=== PATIENT | female | born 1990 | race Caucasian/White ===

== ENCOUNTER 2020-08-31 08:08 | Emergency (ER) | payer MEDICAID ==
[~2020-08-31] VITALS: Ht 175.3 cm; Wt 59.5 kg
[~2020-08-31 08:08] MED LIST: DIPH-423 PO
[2020-08-31] MEDS ORDERED: ondansetron/PF 4mg/2ml inj IV ONE (08:35)
[2020-08-31] MEDS ORDERED: normal saline 1000ML IV soln IVB ONE (08:35)
[2020-08-31] MEDS ORDERED: morphine 4 MG/ML inj SYRINge IV PRN (08:35)
[2020-08-31 09:02] LABS: BASOPHILS % (AUTO) 0.5 % (0-1); EOSINOPHILS # (AUTO) 0.3 X10'3 (0-0.9); EOSINOPHILS % (AUTO) 4.6 % (0-6); HEMATOCRIT 43.3 % (35.0-45.0); HEMOGLOBIN 14.5 g/dl (12.0-16.0); LYMPHOCYTES # (AUTO) 2.3 X10'3 (1.1-4.8); LYMPHOCYTES % (AUTO) 31.7 % (21-51); MEAN CORPUSCULAR HGB CONC 33.5 g/dL (33.0-36.5); MEAN CORPUSCULAR VOLUME 89.6 FL (78-98); MEAN PLATELET VOLUME 8.2 FL (7.4-10.4); MONOCYTES # (AUTO) 0.4 X10'3 (0-0.9); MONOCYTES % (AUTO) 5.7 % (2-12); NEUTROPHILS # (AUTO) 4.1 X10'3 (1.8-7.7); NEUTROPHILS % (AUTO) 57.5 % (42-75); PLATELET COUNT 298 X10'3 (140-440); RED BLOOD COUNT 4.83 X10'6 (4.20-5.60); RED CELL DISTRIBUTION WIDTH 13.1 % (11.5-14.5); WHITE BLOOD COUNT 7.2 X10'3 (4.5-11.0)
[2020-08-31 09:13] LABS: ALANINE AMINOTRANSFERASE 27 U/L (12-78); ALBUMIN 4.2 G/DL (3.4-5.0); ALBUMIN/GLOBULIN RATIO 1.2 (1.1-1.5); ALKALINE PHOSPHATASE 69 IU/L (46-116); ANION GAP 11 (8-16); ASPARTATE AMINO TRANSFERASE 12 U/L (10-37); BILIRUBIN,TOTAL 0.4 MG/DL (0.1-1.0); BLOOD UREA NITROGEN 9 MG/DL (7-18); BUN/CREATININE RATIO 13.8 (6.6-38.0); CHLORIDE 106 MMOL/L (99-107); CREATININE 0.65 MG/DL (0.40-0.90); GLUCOSE 99 MG/DL (70-104); LIPASE 114 U/L (73-393); POTASSIUM 3.7 MMOL/L (3.5-5.1); SODIUM 142 MMOL/L (135-145); TOTAL CARBON DIOXIDE 25.5 MMOL/L (24-32); TOTAL PROTEIN 7.6 G/DL (6.4-8.2); eGFR > 90 ML/MIN
[2020-08-31 09:33] LABS: HCG SERUM QL NEGATIVE
[2020-08-31 10:33] VITALS: BP 91/55
[2020-08-31 11:03] LABS: CLARITY,URINE SLIGHTLY CLOUDY (Clear); COLOR,URINE STRAW (Yellow); GLUCOSE, URINE NEGATIVE (Neg); KETONES,URINE NEGATIVE (Neg); LEUKOCYTE ESTERASE ,URINE NEGATIVE (Neg); NITRITES, URINE NEGATIVE (Neg); OCCULT BLOOD,URINE TRACE-INTACT (Neg); PROTEIN,URINE NEGATIVE (Neg); UROBILINOGEN,URINE 0.2 E.U/dL (0.2-1.0)
[2020-08-31 11:09] LABS: UA COLLECTION TYPE CLN CATCH MIDSTREAM
[2020-08-31 11:12] LABS: SQUAMOUS EPITHELIAL CELL,UR MANY /LPF (FEW)
[2020-08-31 11:15] LABS: BACTERIA,URINE 1+ /HPF (Neg); RBC,URINE 0-2 /HPF (0-2); WBC,URINE 0-4 /HPF (0-4)
== END 2020-08-31 10:35 | disposition home or self-care (01) ==
LOC: ER 08:08
DX: K42.9 Umbilical hernia without obstruction or gangrene (principal); F17.200 Nicotine dependence, unspecified, uncomplicated; F12.10 Cannabis abuse, uncomplicated; Z79.899 Other long term (current) drug therapy
CPT/HCPCS: 36415; 80053; 81001; 83690; 84703; 85025; 96361; 96374; 96375; 99284; J2270; J2405; J7030

== ENCOUNTER 2020-10-09 11:03 | Emergency (ER) | payer MEDICAID ==
[~2020-10-09] VITALS: Ht 177.8 cm; Wt 62.1 kg
[2020-10-09 11:06] VITALS: BP 109/76
[2020-10-09] MEDS ORDERED: normal saline 1000ML IV soln IVB ONE ×2 (11:30→12:20)
[2020-10-09] MEDS ORDERED: proCHLORperazine 10 MG/2 ml inj IV ONE (11:50)
[2020-10-09] MEDS ORDERED: ketorolac tromethamine 15mg/ml inj. IV ONE (11:50)
[2020-10-09] MEDS ORDERED: SUMAtriptan succ. 6 MG/0.5ml vial SQ ONE (12:20)
[2020-10-09] MEDS ORDERED: PROC-8 PO (12:39)
== END 2020-10-09 13:05 | disposition home or self-care (01) ==
LOC: ER 11:04
DX: G43.909 Migraine, unspecified, not intractable, without status migrainosus (principal); E86.0 Dehydration; F17.210 Nicotine dependence, cigarettes, uncomplicated; F12.90 Cannabis use, unspecified, uncomplicated; Z90.49 Acquired absence of other specified parts of digestive tract; Z79.899 Other long term (current) drug therapy
CPT/HCPCS: 71045; 96374; 96375; 99284; J0780; J1885; J7030

== ENCOUNTER 2021-02-13 19:13 | Emergency (ER) | payer MEDICAID ==
[~2021-02-13] VITALS: Ht 177.8 cm; Wt 58.0 kg
[~2021-02-13 19:13] MED LIST changes: +PROC-8 PO
[2021-02-13 19:18] VITALS: BP 133/79
[2021-02-13] MEDS ORDERED: normal saline 1000ML IV soln IVB ONE ×2 (19:25→19:35)
[2021-02-13] MEDS ORDERED: HYDROmorphone inj. 0.5 MG/0.5 ML DISP.SYRIN IV PRN (19:35)
[2021-02-13] MEDS ORDERED: ondansetron/PF 4mg/2ml inj IV ONE (19:35)
--- NOTE | 2021-02-13 19:39 | NUR ---
LONNY PULLED FROM [employer] AND HANDED OFF TO PRIMARY RN
[2021-02-13 19:45] LABS: BASOPHILS % (AUTO) 0.6 % (0-1); EOSINOPHILS # (AUTO) 0.2 X10'3 (0-0.9); EOSINOPHILS % (AUTO) 2.6 % (0-6); HEMOGLOBIN 13.2 g/dl (12.0-16.0); LYMPHOCYTES # (AUTO) 3.1 X10'3 (1.1-4.8); LYMPHOCYTES % (AUTO) 40.1 % (21-51); MEAN CORPUSCULAR HGB CONC 33.1 g/dL (33.0-36.5); MEAN CORPUSCULAR VOLUME 90.6 FL (78-98); MEAN PLATELET VOLUME 7.9 FL (7.4-10.4); MONOCYTES # (AUTO) 0.5 X10'3 (0-0.9); MONOCYTES % (AUTO) 7.1 % (2-12); NEUTROPHILS # (AUTO) 3.8 X10'3 (1.8-7.7); NEUTROPHILS % (AUTO) 49.6 % (42-75); PLATELET COUNT 267 X10'3 (140-440); RED BLOOD COUNT 4.41 X10'6 (4.20-5.60); WHITE BLOOD COUNT 7.7 X10'3 (4.5-11.0)
[2021-02-13] MEDS ORDERED: HYDROmorphone 1 mg/ml syringe IV PRN (19:47)
[2021-02-13 19:56] LABS: HCG SERUM QL NEGATIVE
[2021-02-13 20:01] LABS: ALANINE AMINOTRANSFERASE 26 U/L (12-78); ALBUMIN 4.3 G/DL (3.4-5.0); ALBUMIN/GLOBULIN RATIO 1.3 (1.1-1.5); ALKALINE PHOSPHATASE 67 IU/L (46-116); ANION GAP 10 (8-16); ASPARTATE AMINO TRANSFERASE 14 U/L (10-37); BILIRUBIN,TOTAL 0.4 MG/DL (0.1-1.0); BLOOD UREA NITROGEN 11 MG/DL (7-18); CALCIUM 8.8 MG/DL (8.5-10.1); CHLORIDE 104 MMOL/L (99-107); CREATININE 0.61 MG/DL (0.40-0.90); GLUCOSE 100 MG/DL (70-104); LIPASE 112 U/L (73-393); POTASSIUM 3.5 MMOL/L (3.5-5.1); SODIUM 142 MMOL/L (135-145); TOTAL CARBON DIOXIDE 27.8 MMOL/L (24-32); TOTAL PROTEIN 7.7 G/DL (6.4-8.2); eGFR > 90 ML/MIN
[2021-02-13] MEDS ORDERED: fentaNYL/PF 50MCG/1 ML 2ML syringe IV ONE (20:05)
[2021-02-13] MEDS ORDERED: ketorolac tromethamine 15mg/ml inj. IV ONE (20:05)
[2021-02-13 20:36] LABS: CLARITY,URINE TURBID (Clear); COLOR,URINE BROWN (Yellow); GLUCOSE, URINE NEGATIVE (Neg); KETONES,URINE TRACE mg/dl (Neg); LEUKOCYTE ESTERASE ,URINE NEGATIVE (Neg); OCCULT BLOOD,URINE LARGE (Neg); PH,URINE 6.5 (4.8-8.0); PROTEIN,URINE 100 mg/dl (Neg)
[2021-02-13 20:54] LABS: UA COLLECTION TYPE CLN CATCH MIDSTREAM
[2021-02-13 20:57] LABS: NITRITES, URINE NEGATIVE (Neg)
[2021-02-13 20:59] LABS: RBC,URINE TNTC /HPF (0-2); WBC,URINE 0-4 /HPF (0-4)
[2021-02-13 21:00] LABS: BACTERIA,URINE 1+ /HPF (Neg); CAL OXALATE CRYSTALS FEW /HPF (NEGATIVE); MUCUS STRANDS MANY /LPF (Neg); SQUAMOUS EPITHELIAL CELL,UR MANY /LPF (FEW)
--- NOTE | 2021-02-13 21:01 | NUR ---
URINE WAS REJECTED FOR CULTURE
[2021-02-13] MEDS ORDERED: KETO10TA2 PO (21:15)
[2021-02-13] MEDS ORDERED: OXYB5TAB16 PO (21:15)
[2021-02-13] MEDS ORDERED: PHEN-824 PO (21:15)
[2021-02-13] MEDS ORDERED: FLO0.4C PO (21:15)
[2021-02-13] MEDS ORDERED: HYDR-3965 PO (21:16)
[2021-02-13] MEDS ORDERED: ONDA4TAB6 PO (21:16)
== END 2021-02-13 21:51 | disposition home or self-care (01) ==
LOC: ER 19:13
DX: Q61.5 Medullary cystic kidney (principal); N13.30 Unspecified hydronephrosis; R10.84 Generalized abdominal pain; F12.90 Cannabis use, unspecified, uncomplicated; Z90.49 Acquired absence of other specified parts of digestive tract; Z79.899 Other long term (current) drug therapy
CPT/HCPCS: 36415; 74176; 80053; 81001; 83690; 84703; 85025; 96361; 96374; 96375; 99284; J1170; J1885; J2405; J7030

== ENCOUNTER 2022-02-22 13:28 | Emergency (ER) | payer MEDICAID ==
[~2022-02-22] VITALS: Ht 175.3 cm; Wt 79.1 kg
[~2022-02-22 13:28] MED LIST changes: +KETO10TA2 PO; +ONDA4TAB6 PO; +OXYB5TAB16 PO; +PHEN-824 PO
[2022-02-22 13:58] VITALS: BP 105/70
== END 2022-02-22 14:50 | disposition left against medical advice (07) ==
LOC: ER 13:29
DX: K92.1 Melena (principal); Z53.21 Procedure and treatment not carried out due to patient leaving prior to being seen by health care provider

== ENCOUNTER 2022-07-16 17:09 | Emergency (ER) | payer MEDICAID ==
[~2022-07-16] VITALS: Ht 175.3 cm; Wt 68.2 kg
[2022-07-16 18:29] LABS: BASOPHILS # (AUTO) 0.1 X10'3 (0-0.2); BASOPHILS % (AUTO) 0.6 % (0-1); EOSINOPHILS # (AUTO) 0.5 X10'3 (0-0.9); EOSINOPHILS % (AUTO) 5.1 % (0-6); HEMATOCRIT 43.2 % (35.0-45.0); HEMOGLOBIN 14.6 g/dl (12.0-16.0); LYMPHOCYTES # (AUTO) 3.2 X10'3 (1.1-4.8); LYMPHOCYTES % (AUTO) 32.2 % (21-51); MEAN CORPUSCULAR HEMOGLOBIN 28.9 PG (27.0-31.0); MEAN CORPUSCULAR HGB CONC 33.9 g/dL (33.0-36.5); MEAN CORPUSCULAR VOLUME 85.4 FL (78-98); MEAN PLATELET VOLUME 7.8 FL (7.4-10.4); MONOCYTES # (AUTO) 0.7 X10'3 (0-0.9); MONOCYTES % (AUTO) 6.8 % (2-12); NEUTROPHILS # (AUTO) 5.4 X10'3 (1.8-7.7); NEUTROPHILS % (AUTO) 55.3 % (42-75); PLATELET COUNT 304 X10'3 (140-440); RED BLOOD COUNT 5.06 X10'6 (4.20-5.60); RED CELL DISTRIBUTION WIDTH 14.6 % (11.5-14.5); WHITE BLOOD COUNT 9.8 X10'3 (4.5-11.0)
[2022-07-16 18:52] LABS: ALANINE AMINOTRANSFERASE 29 U/L (12-78); ALBUMIN/GLOBULIN RATIO 1.1 (1.1-1.5); ALKALINE PHOSPHATASE 107 IU/L (46-116); ANION GAP 6 (8-16); ASPARTATE AMINO TRANSFERASE 13 U/L (10-37); BILIRUBIN,TOTAL 0.2 MG/DL (0.1-1.0); BLOOD UREA NITROGEN 7 MG/DL (7-18); BUN/CREATININE RATIO 11.5 (6.6-38.0); CALCIUM 8.9 MG/DL (8.5-10.1); CHLORIDE 101 MMOL/L (99-107); CREATININE 0.61 MG/DL (0.40-0.90); GLUCOSE 95 MG/DL (70-104); LIPASE 114 U/L (73-393); POTASSIUM 3.8 MMOL/L (3.5-5.1); SODIUM 136 MMOL/L (135-145); TOTAL PROTEIN 7.6 G/DL (6.4-8.2); eGFR > 90 ML/MIN
[2022-07-16] MEDS ORDERED: morphine 4 MG/ML inj SYRINge IV ONE ×3 (20:40→22:50)
[2022-07-16] MEDS ORDERED: ondansetron/PF 4mg/2ml inj IV ONE (20:40)
[2022-07-16 21:18] LABS: HCG SERUM QL NEGATIVE
[2022-07-16] MEDS ORDERED: iohexol 300mg/ml 100ml inj. ONE (21:18)
[2022-07-16 21:31] LABS: CLARITY,URINE SLIGHTLY CLOUDY (Clear); COLOR,URINE YELLOW (Yellow); GLUCOSE, URINE NEGATIVE (Neg); KETONES,URINE NEGATIVE (Neg); LEUKOCYTE ESTERASE ,URINE NEGATIVE (Neg); NITRITES, URINE NEGATIVE (Neg); OCCULT BLOOD,URINE NEGATIVE (Neg); PROTEIN,URINE NEGATIVE (Neg); UROBILINOGEN,URINE 0.2 E.U/dL (0.2-1.0)
[2022-07-16 21:32] LABS: URINE HCG NEGATIVE (NEG)
[2022-07-16 21:33] LABS: UA COLLECTION TYPE NON-SPECIFIED
[2022-07-16 21:46] LABS: BACTERIA,URINE 1+ /HPF (Neg); MUCUS STRANDS FEW /LPF (Neg); SQUAMOUS EPITHELIAL CELL,UR MANY /LPF (FEW)
[2022-07-16] MEDS ORDERED: famotidine/PF 10 mg/ml inj IV ONE (22:50)
[2022-07-16] MEDS ORDERED: mag hydrox/Alum hydrox/simeth 30ml oral suspension PO ONE (22:50)
[2022-07-16] MEDS ORDERED: ketorolac trometh. 30mg/ml inj. IV ONE (23:20)
[2022-07-16] MEDS ORDERED: sucralfate 1 gm tablet PO ONE (23:20)
[2022-07-17 00:56] VITALS: BP 102/68
== END 2022-07-17 01:14 | disposition home or self-care (01) ==
LOC: ER 17:09
DX: K42.9 Umbilical hernia without obstruction or gangrene (principal); R10.84 Generalized abdominal pain; F17.200 Nicotine dependence, unspecified, uncomplicated; F12.90 Cannabis use, unspecified, uncomplicated; Z90.49 Acquired absence of other specified parts of digestive tract; Z56.0 Unemployment, unspecified; Z79.899 Other long term (current) drug therapy
CPT/HCPCS: 36415; 74177; 80053; 81001; 81025; 83605; 83690; 84703; 85025; 96374; 96375; 96376; 99285; J2270; J2405; J3490; Q9967

== ENCOUNTER 2022-08-26 10:58 | Emergency (ER) | payer MEDICAID ==
[~2022-08-26] VITALS: Ht 175.3 cm; Wt 68.5 kg
[2022-08-26 11:10] VITALS: BP 120/82
--- NOTE | 2022-08-26 11:30 | NUR ---
Patient refusing labs till being seen by
--- NOTE | 2022-08-26 14:00 | NUR ---
Phlebotomy states that patient refusing to have labs draw until after she is seen by a physician.
== END 2022-08-26 20:22 | disposition left against medical advice (07) ==
LOC: ER 10:58
DX: K62.5 Hemorrhage of anus and rectum (principal); Z53.21 Procedure and treatment not carried out due to patient leaving prior to being seen by health care provider

== ENCOUNTER 2022-12-17 15:37 | Emergency (ER) | payer MEDICAID ==
[~2022-12-17] VITALS: Ht 175.3 cm; Wt 68.6 kg
[2022-12-17 15:48] VITALS: BP 117/78
[2022-12-17 16:17] LABS: CLARITY,URINE CLOUDY (Clear); COLOR,URINE YELLOW (Yellow); GLUCOSE, URINE NEGATIVE (Neg); KETONES,URINE TRACE mg/dl (Neg); LEUKOCYTE ESTERASE ,URINE NEGATIVE (Neg); NITRITES, URINE NEGATIVE (Neg); OCCULT BLOOD,URINE NEGATIVE (Neg); PH,URINE 7.5 (4.8-8.0); PROTEIN,URINE NEGATIVE (Neg); UROBILINOGEN,URINE 0.2 E.U/dL (0.2-1.0)
[2022-12-17 16:18] LABS: URINE HCG NEGATIVE (NEG)
[2022-12-17 16:22] LABS: BASOPHILS # (AUTO) 0.1 X10'3 (0-0.2); BASOPHILS % (AUTO) 0.6 % (0-1); EOSINOPHILS # (AUTO) 0.4 X10'3 (0-0.9); EOSINOPHILS % (AUTO) 4.4 % (0-6); HEMATOCRIT 46.5 % (35.0-45.0); HEMOGLOBIN 15.6 g/dl (12.0-16.0); LYMPHOCYTES # (AUTO) 2.9 X10'3 (1.1-4.8); LYMPHOCYTES % (AUTO) 29.5 % (21-51); MEAN CORPUSCULAR HEMOGLOBIN 29.2 PG (27.0-31.0); MEAN CORPUSCULAR HGB CONC 33.6 g/dL (33.0-36.5); MEAN PLATELET VOLUME 7.6 FL (7.4-10.4); MONOCYTES # (AUTO) 0.5 X10'3 (0-0.9); MONOCYTES % (AUTO) 5.2 % (2-12); NEUTROPHILS # (AUTO) 5.9 X10'3 (1.8-7.7); NEUTROPHILS % (AUTO) 60.3 % (42-75); PLATELET COUNT 355 X10'3 (140-440); RED BLOOD COUNT 5.34 X10'6 (4.20-5.60); RED CELL DISTRIBUTION WIDTH 14.6 % (11.5-14.5); WHITE BLOOD COUNT 9.7 X10'3 (4.5-11.0)
[2022-12-17 16:34] LABS: ALANINE AMINOTRANSFERASE 17 U/L (12-78); ALBUMIN 4.2 G/DL (3.4-5.0); ALBUMIN/GLOBULIN RATIO 1.1 (1.1-1.5); ALKALINE PHOSPHATASE 64 IU/L (46-116); ANION GAP 11 (8-16); ASPARTATE AMINO TRANSFERASE 14 U/L (10-37); BILIRUBIN,TOTAL 0.3 MG/DL (0.1-1.0); BLOOD UREA NITROGEN 13 MG/DL (7-18); BUN/CREATININE RATIO 15.7 (10.0-20.0); CALCIUM 9.6 MG/DL (8.5-10.1); CHLORIDE 101 MMOL/L (99-107); CREATININE 0.83 MG/DL (0.40-0.90); GLUCOSE 107 MG/DL (70-104); LIPASE 112 U/L (73-393); POTASSIUM 3.7 MMOL/L (3.5-5.1); SODIUM 138 MMOL/L (135-145); TOTAL CARBON DIOXIDE 25.6 MMOL/L (24-32); eGFR 80 ML/MIN
[2022-12-17 16:45] LABS: UA COLLECTION TYPE CLN CATCH MIDSTREAM
[2022-12-17 16:47] LABS: AMORPHOUS PHOSPHATES 3+; BACTERIA,URINE 2+ /HPF (Neg); RBC,URINE 0-2 /HPF (0-2); SQUAMOUS EPITHELIAL CELL,UR MANY /LPF (FEW)
== END 2022-12-17 18:16 | disposition left against medical advice (07) ==
LOC: ER 15:38
DX: N20.0 Calculus of kidney (principal); Z53.21 Procedure and treatment not carried out due to patient leaving prior to being seen by health care provider
CPT/HCPCS: 36415; 80053; 81001; 81025; 83690; 85025; 99281; 99283

== ENCOUNTER 2024-02-23 17:21 | Emergency (ER) | payer MEDICAID ==
[~2024-02-23] VITALS: Ht 177.8 cm; Wt 84.1 kg
[~2024-02-23 17:21] MED LIST changes: -OXYB5TAB16 PO; +OXYB5TAB21 PO
[2024-02-23 17:50] VITALS: BP 115/70; PULSE 91; RESP 18; TEMP 97.8; O2SAT 98
== END 2024-02-23 21:47 | disposition left against medical advice (07) ==
LOC: ER 17:21
DX: M54.9 Dorsalgia, unspecified (principal); M54.2 Cervicalgia; Z53.21 Procedure and treatment not carried out due to patient leaving prior to being seen by health care provider

== ENCOUNTER 2024-05-13 09:47 | Day surgery (SDC) | payer MEDICAID ==
[2024-05-06 14:55] LABS: HCG SERUM QL NEGATIVE
[2024-05-13] VITALS (9 sets, daily range): BP systolic 112–129; BP diastolic 61–87; PULSE 56–106; RESP 12–22; TEMP 97.5; O2SAT 98–100
[~2024-05-13] VITALS: Ht 175.3 cm; Wt 84.2 kg
[~2024-05-13 09:47] MED LIST changes: -DIPH-423 PO; -KETO10TA2 PO; +NO HOME MEDS; -ONDA4TAB6 PO; -OXYB5TAB21 PO; -PHEN-824 PO; -PROC-8 PO; +albuterol 2.5 MG/3 ML nebule NEB ONE
[2024-05-13] MEDS: famotidine 20mg tablet PO ONE (11:35)
[2024-05-13] MEDS: ringers solution, lacted 1,000 ML IV SCH (11:36)
[2024-05-13] MEDS ORDERED: ringers solution, lacted 1,000 ML IV SCH (11:40)
[2024-05-13] MEDS ORDERED: morphine 2 MG/ML inj. syringe IV PRN (11:40)
[2024-05-13] MEDS ORDERED: ondansetron/PF 4mg/2ml inj IV PRN (11:40)
[2024-05-13] MEDS ORDERED: proCHLORperazine 10 MG/2 ml inj IV PRN (11:40)
[2024-05-13] MEDS ORDERED: meperidine/PF 25mg/ml syringe IV PRN ×2 (11:40)
[2024-05-13] MEDS ORDERED: hydrALAZINE 20mg/ml inj. IV PRN (11:40)
[2024-05-13] MEDS ORDERED: morphine 4 MG/ML inj SYRINge IV PRN (11:40)
[2024-05-13] MEDS ORDERED: labetalol 20mg/4ml (5mg/ml) syringe IV PRN (11:40)
[2024-05-13 12:31] LABS: HCG SERUM QL NEGATIVE
[2024-05-13] MEDS ORDERED: BUPIVAcaine/PF 2.5mg/ml (0.25%) 10ml vial ONE ×2 (12:35→13:42)
[2024-05-13] MEDS ORDERED: sevoflurane 250ml liquid IH ONE (12:56)
[2024-05-13] MEDS ORDERED: fentaNYL/PF 50MCG/1 ML 2ML syringe ONE (13:05)
[2024-05-13] MEDS ORDERED: midazolam 1 mg/ML 2ml injection ONE (13:08)
[2024-05-13] MEDS ORDERED: rocuronium 10mg/ml inj IV ONE (13:25)
[2024-05-13] MEDS ORDERED: ondansetron/PF 4mg/2ml inj ONE (13:25)
[2024-05-13] MEDS ORDERED: LIDOcaine 2% (20mg/ml) 5ml vial ONE (13:25)
[2024-05-13] MEDS ORDERED: propofol inj 20 ML IV ONE (13:25)
[2024-05-13] MEDS ORDERED: dexamethasone sod phosphate 4mg/ml inj. ONE (13:25)
[2024-05-13] MEDS: BUPIVAcaine 2.5mg/ml inj 50ml vial (contains preservative) SQ ONE (13:42)
[2024-05-13] MEDS: meperidine/PF 25mg/ml syringe IV PRN (14:24)
[2024-05-13] MEDS: acetaminophen 1,000mg/100ml IV 100 ML IV ONE (14:27)
== END 2024-05-13 15:25 | disposition home or self-care (01) ==
LOC: PAS 09:47
PROVIDERS: ATTEND Obstetrics & Gynecology
DX: Z30.2 Encounter for sterilization (principal); K21.9 Gastro-esophageal reflux disease without esophagitis; I25.2 Old myocardial infarction; F17.200 Nicotine dependence, unspecified, uncomplicated; Z87.442 Personal history of urinary calculi; Z79.2 Long term (current) use of antibiotics; Z79.899 Other long term (current) drug therapy; Z90.49 Acquired absence of other specified parts of digestive tract; Z98.891 History of uterine scar from previous surgery; Z98.890 Other specified postprocedural states; Z80.1 Family history of malignant neoplasm of trachea, bronchus and lung; Z80.3 Family history of malignant neoplasm of breast; Z80.8 Family history of malignant neoplasm of other organs or systems
CPT/HCPCS: 36415; 58670; 82948; 84703; 86885; 86900; 86901; J0131; J1100; J2175; J2250; J2405; J2704; J2710; J3010; J3490; J7030; J7120; Z7506; Z7508; Z7512; A4618

== ENCOUNTER 2025-06-25 20:29 | Emergency (ER) | payer MEDICAID ==
[~2025-06-25] VITALS: Ht 175.3 cm; Wt 68.2 kg
[~2025-06-25 20:29] MED LIST changes: -albuterol 2.5 MG/3 ML nebule NEB ONE
--- NOTE | 2025-06-25 20:37 | ELECTROCARDIOGRAPH REPORT ---
[facility] Test Date: 2025-06-25 Test Time: 20:36:04 Pat Name: JHON ZEE Department: EMERGENCY ROOM Room: Gender: F Kit Assembler: PM : 1990 Requested By: MATTHEW MELCHOR Order Number: [id number] Reading MD: Dr. Matthew Melchor Measurements Intervals Dennis Rate: 81 P: 0 MT: 0 QRS: 73 QRSD: 91 T: 62 QT: 355 QTc: 412 Interpretive Statements Atrial fibrillation Electronically Signed On 06-25-2025 21:08:[address] Matthew Melchor Please click the below link to view image of tracing.
--- NOTE | 2025-06-25 21:02 | RADIOLOGY REPORT ---
CHEST RADIOGRAPH Indication: CP Technique: Single frontal view of the chest was obtained Comparison: CHEST,SINGLE VIEW on DOS: 10/09/20 FINDINGS: Lines and Tubes: None Lungs: No focal consolidation. Pleura: No effusion. No pneumothorax. Cardiomediastinal contours: Unremarkable Bones: No acute osseous abnormality. IMPRESSION: No acute cardiopulmonary disease.
[2025-06-25 21:07] LABS: MEAN PLATELET VOLUME 8.1 FL (7.4-10.4); RED CELL DISTRIBUTION WIDTH 14.6 % (11.5-14.5)
[2025-06-25 21:28] LABS: CREATININE 0.66 MG/DL (0.40-0.90); PRO BRAIN NATRIURETIC PEPTIDE < 30 PG/ML (0-125); TOTAL CARBON DIOXIDE 27.1 MMOL/L (24-32); eCRCL 124 ML/MIN; eGFR > 90 ML/MIN
[2025-06-25 23:17] VITALS: TEMP 98
[2025-06-26 01:43] VITALS: BP 123/78; PULSE 73; RESP 14; O2SAT 98
== END 2025-06-26 03:55 | disposition left against medical advice (07) ==
LOC: ER 20:30
DX: R42 Dizziness and giddiness (principal)
CPT/HCPCS: 36415; 71045; 80048; 83880; 84484; 85025; 93005; 99281